=== PATIENT | female | born 1955 | race Caucasian/White ===

== ENCOUNTER 2017-11-19 11:16 | Outpatient (CLI) | payer BC ==
--- NOTE | 2017-11-22 18:19 | Mammography Report ---
DATE OF SERVICE: 11/19/2017 DIGITAL SCREENING MAMMOGRAM: 11/19/2017 CLINICAL INDICATION: A 62-year-old with history of benign biopsy, history of light childbearing for screening. The patient reports having had previous mammograms in [place], [place], but the facility indicated by the patient states that they have no record of the patient. If the records and your office indicate where the patient's previous mammograms were performed, we would be happy to try to obtain them for direct comparison. Otherwise, this will serve as a new baseline breasts. TECHNIQUE: Routine CC and MLO projections as well as bilateral laterally exaggerated craniocaudal views were obtained of the breasts. The breasts demonstrate heterogeneously dense fibroglandular parenchyma bilaterally. There is a biopsy marker in the right upper outer central breast. Coarse and punctate, typically benign calcifications are present. No suspicious masses, clustered microcalcifications, or regions of architectural distortion are identified. IMPRESSION: Benign findings. RECOMMENDATIONS: Routine annual screening unless otherwise clinically indicated. BIRADS category 2 benign findings. STANDARD QUALIFYING STATEMENTS 1. This examination was reviewed with the aid of Computed-Aided Detection (CAD). 2. A negative or benign imaging report should not delay biopsy if clinically suspicious findings are present. Consider surgical consultation if warranted. More than 5% of cancers are not identified by imaging. 3. Dense breasts may obscure an underlying neoplasm. TD: 11/22/2017 19:18
== END 2017-11-19 11:17 | disposition home or self-care (01) ==
LOC: DI 11:16
PROVIDERS: ATTEND Internal Medicine
DX: Z12.31 Encounter for screening mammogram for malignant neoplasm of breast (principal)
CPT/HCPCS: 77067

== ENCOUNTER 2017-12-19 11:03 | Outpatient (CLI) | payer BC ==
[2017-12-19 11:40] LABS: BASOPHILS # (AUTO) 0.1 10^3/uL (0.0-0.1); BASOPHILS % (AUTO) 0.8 %; LYMPHOCYTES # (AUTO) 2.9 10^3/uL (1.5-3.5); LYMPHOCYTES % (AUTO) 42.9 %; MEAN CORPUSCULAR HEMOGLOBIN 33.3 pg (27.0-31.0); MEAN CORPUSCULAR HGB CONC 34.8 g/dL (32.0-36.0); MEAN CORPUSCULAR VOLUME 95.6 fL (81.0-99.0); MONOCYTES # (AUTO) 0.7 10^3/uL (0.0-1.0); MONOCYTES % (AUTO) 10.8 %; NEUTROPHILS # (AUTO) 3.1 10^3/uL (1.5-6.6); NEUTROPHILS % (AUTO) 45.5 %; PLT - PLATELET COUNT 303 10^3/uL (130-450); RED BLOOD COUNT 4.51 10^6/uL (4.20-5.40); WHITE BLOOD COUNT 6.8 x10^3/uL (4.8-10.8)
[2017-12-19 11:53] LABS: ALBUMIN 5.1 g/dL (3.2-5.5); BILIRUBIN,DIRECT 0.2 mg/dL (0.1-0.5); TOTAL PROTEIN 8.1 g/dL (6.7-8.2)
[2017-12-19 12:47] LABS: THYROID STIMULATING HORMONE 0.75 uIU/mL (0.34-5.60)
[2017-12-19 12:51] LABS: FREE T4 (FREE THYROXINE) 0.76 ng/dL (0.58-1.64)
[2017-12-19 12:55] LABS: TOTAL T3 0.79 ng/mL (0.87-1.78)
== END 2017-12-19 11:04 | disposition home or self-care (01) ==
LOC: LAB 11:03
PROVIDERS: ATTEND Internal Medicine Endocrinology, Diabetes & Metabolism
DX: E05.90 Thyrotoxicosis, unspecified without thyrotoxic crisis or storm (principal); E04.2 Nontoxic multinodular goiter
CPT/HCPCS: 36415; 80076; 84439; 84443; 84480; 85025

== ENCOUNTER 2018-02-08 09:29 | Outpatient (CLI) | payer BC, OTHER ==
--- NOTE | 2018-02-08 12:43 | Ultrasound Report ---
THYROID ULTRASOUND: 02/08/2018 HISTORY: Followup multiple thyroid nodules, hypothyroidism. COMPARISON: Unfortunately, none. TECHNIQUE: Real-time scanning by the five piece expansion maker hand with saved static images reviewed. FINDINGS: Both lobes of the thyroid are diffusely coarse and heterogeneous in echotexture with multiple small cystic spaces. No hypervascularity. A definite discrete nodule is not identified on this study. Right lobe: 5.1 x 2.3 x 2.5 cm. Volume 15.3 mL. Left lobe: 4.8 x 1.9 x 2.3 cm , volume 10.9 mL. Isthmus: 0.4 cm. No regional adenopathy. IMPRESSION: DIFFUSE COARSE HETEROGENEOUS BILATERAL THYROID ECHOTEXTURE WITHOUT DISCRETE NODULE. WHEN PRIOR IMAGES BECOME AVAILABLE, AN ADDENDED REPORT CAN BE ISSUED. TD: 02/08/2018 12:42 MTDJodie
== END 2018-02-08 09:30 | disposition home or self-care (01) ==
LOC: DI 09:29
PROVIDERS: ATTEND Internal Medicine Endocrinology, Diabetes & Metabolism
DX: E04.2 Nontoxic multinodular goiter (principal); E05.90 Thyrotoxicosis, unspecified without thyrotoxic crisis or storm
CPT/HCPCS: 76536

== ENCOUNTER 2018-03-12 10:23 | Outpatient (CLI) | payer BC, OTHER ==
[2018-03-12 17:21] LABS: BASOPHILS # (AUTO) 0.1 10^3/uL (0.0-0.1); EOSINOPHILS % (AUTO) 0.1 %; HGB - HEMOGLOBIN 14.7 g/dL (12.0-16.0); LYMPHOCYTES # (AUTO) 2.8 10^3/uL (1.5-3.5); LYMPHOCYTES % (AUTO) 40.5 %; MEAN CORPUSCULAR HEMOGLOBIN 31.8 pg (27.0-31.0); MEAN CORPUSCULAR HGB CONC 33.1 g/dL (32.0-36.0); MEAN CORPUSCULAR VOLUME 96.1 fL (81.0-99.0); MEAN PLATELET VOLUME 8.2 fL (7.9-10.8); MONOCYTES # (AUTO) 0.6 10^3/uL (0.0-1.0); NEUTROPHILS # (AUTO) 3.5 10^3/uL (1.5-6.6); NEUTROPHILS % (AUTO) 50.4 %; PLT - PLATELET COUNT 335 10^3/uL (130-450); RED BLOOD COUNT 4.61 10^6/uL (4.20-5.40); RED CELL DISTRIBUTION WIDTH 12.8 % (12.0-15.0); WHITE BLOOD COUNT 6.9 x10^3/uL (4.8-10.8)
[2018-03-12 17:36] LABS: ALBUMIN 4.9 g/dL (3.2-5.5); BILIRUBIN,DIRECT 0.1 mg/dL (0.1-0.5); BILIRUBIN,TOTAL 0.8 mg/dL (0.2-1.0)
[2018-03-12 17:46] LABS: THYROID STIMULATING HORMONE 0.31 uIU/mL (0.34-5.60)
[2018-03-12 17:48] LABS: FREE T4 (FREE THYROXINE) 0.86 ng/dL (0.58-1.64)
[2018-03-12 17:52] LABS: TOTAL T3 0.94 ng/mL (0.87-1.78)
== END 2018-03-12 10:24 | disposition home or self-care (01) ==
LOC: LAB.F 10:23
PROVIDERS: ATTEND Internal Medicine Endocrinology, Diabetes & Metabolism
DX: E05.90 Thyrotoxicosis, unspecified without thyrotoxic crisis or storm (principal)
CPT/HCPCS: 36415; 80076; 84439; 84443; 84480; 84481; 85025

== ENCOUNTER 2018-06-21 10:47 | Outpatient (CLI) | payer OTHER ==
[2018-06-21 17:38] LABS: BASOPHILS % (AUTO) 0.8 %; EOSINOPHILS % (AUTO) 0.1 %; HGB - HEMOGLOBIN 14.7 g/dL (12.0-16.0); LYMPHOCYTES # (AUTO) 2.2 10^3/uL (1.5-3.5); LYMPHOCYTES % (AUTO) 47.9 %; MEAN CORPUSCULAR HEMOGLOBIN 33.2 pg (27.0-31.0); MEAN CORPUSCULAR HGB CONC 34.5 g/dL (32.0-36.0); MEAN CORPUSCULAR VOLUME 96.1 fL (81.0-99.0); MEAN PLATELET VOLUME 7.8 fL (7.9-10.8); MONOCYTES # (AUTO) 0.6 10^3/uL (0.0-1.0); MONOCYTES % (AUTO) 12.8 %; NEUTROPHILS # (AUTO) 1.8 10^3/uL (1.5-6.6); NEUTROPHILS % (AUTO) 38.4 %; PLT - PLATELET COUNT 330 10^3/uL (130-450); RED BLOOD COUNT 4.43 10^6/uL (4.20-5.40); WHITE BLOOD COUNT 4.6 x10^3/uL (4.8-10.8)
[2018-06-21 17:47] LABS: BILIRUBIN,DIRECT 0.2 mg/dL (0.1-0.5); BILIRUBIN,TOTAL 0.7 mg/dL (0.2-1.0); TOTAL PROTEIN 7.9 g/dL (6.7-8.2)
[2018-06-21 17:50] LABS: THYROID STIMULATING HORMONE 0.81 uIU/mL (0.34-5.60)
[2018-06-21 17:52] LABS: FREE T4 (FREE THYROXINE) 0.81 ng/dL (0.58-1.64)
[2018-06-21 17:57] LABS: TOTAL T3 1.01 ng/mL (0.87-1.78)
== END 2018-06-21 10:48 | disposition home or self-care (01) ==
LOC: LAB.F 10:47
PROVIDERS: ATTEND Internal Medicine Endocrinology, Diabetes & Metabolism
DX: E05.90 Thyrotoxicosis, unspecified without thyrotoxic crisis or storm (principal); E04.2 Nontoxic multinodular goiter
CPT/HCPCS: 36415; 80076; 84439; 84443; 84480; 85025

== ENCOUNTER 2018-09-24 10:41 | Outpatient (CLI) | payer OTHER ==
[2018-09-24 18:22] LABS: THYROID STIMULATING HORMONE 1.07 uIU/mL (0.34-5.60)
[2018-09-24 18:24] LABS: FREE T4 (FREE THYROXINE) 0.74 ng/dL (0.58-1.64)
[2018-09-24 18:26] LABS: BILIRUBIN,DIRECT 0.2 mg/dL (0.1-0.5); BILIRUBIN,TOTAL 1.1 mg/dL (0.2-1.0); TOTAL PROTEIN 7.7 g/dL (6.7-8.2); TOTAL T3 0.81 ng/mL (0.87-1.78)
== END 2018-09-24 10:42 | disposition home or self-care (01) ==
LOC: LAB.F 10:41
PROVIDERS: ATTEND Internal Medicine Endocrinology, Diabetes & Metabolism
DX: E05.90 Thyrotoxicosis, unspecified without thyrotoxic crisis or storm (principal)
CPT/HCPCS: 36415; 80076; 84439; 84443; 84480

== ENCOUNTER 2018-10-01 10:33 | Outpatient (CLI) | payer OTHER ==
[2018-10-01 18:12] LABS: BASOPHILS # (AUTO) 0.1 10^3/uL (0.0-0.1); BASOPHILS % (AUTO) 0.9 %; EOSINOPHILS % (AUTO) 0.2 %; HGB - HEMOGLOBIN 15.1 g/dL (12.0-16.0); LYMPHOCYTES # (AUTO) 2.2 10^3/uL (1.5-3.5); LYMPHOCYTES % (AUTO) 39.6 %; MEAN CORPUSCULAR HEMOGLOBIN 33.3 pg (27.0-31.0); MEAN CORPUSCULAR VOLUME 97.9 fL (81.0-99.0); MONOCYTES # (AUTO) 0.6 10^3/uL (0.0-1.0); MONOCYTES % (AUTO) 11.2 %; NEUTROPHILS # (AUTO) 2.6 10^3/uL (1.5-6.6); NEUTROPHILS % (AUTO) 48.1 %; PLT - PLATELET COUNT 341 10^3/uL (130-450); RED BLOOD COUNT 4.54 10^6/uL (4.20-5.40); WHITE BLOOD COUNT 5.5 x10^3/uL (4.8-10.8)
== END 2018-10-01 10:34 | disposition home or self-care (01) ==
LOC: LAB.F 10:33
PROVIDERS: ATTEND Internal Medicine Endocrinology, Diabetes & Metabolism
DX: E05.90 Thyrotoxicosis, unspecified without thyrotoxic crisis or storm (principal)
CPT/HCPCS: 36415; 85025

== ENCOUNTER 2018-12-31 10:30 | Outpatient (CLI) | payer BC ==
[2018-12-31 17:55] LABS: BASOPHILS % (AUTO) 0.9 %; EOSINOPHILS % (AUTO) 0.2 %; HGB - HEMOGLOBIN 14.9 g/dL (12.0-16.0); LYMPHOCYTES # (AUTO) 2.1 10^3/uL (1.5-3.5); LYMPHOCYTES % (AUTO) 43.4 %; MEAN CORPUSCULAR HEMOGLOBIN 32.7 pg (27.0-31.0); MEAN CORPUSCULAR HGB CONC 33.5 g/dL (32.0-36.0); MEAN CORPUSCULAR VOLUME 97.5 fL (81.0-99.0); MONOCYTES # (AUTO) 0.5 10^3/uL (0.0-1.0); MONOCYTES % (AUTO) 11.2 %; NEUTROPHILS # (AUTO) 2.1 10^3/uL (1.5-6.6); NEUTROPHILS % (AUTO) 44.3 %; PLT - PLATELET COUNT 331 10^3/uL (130-450); RED BLOOD COUNT 4.55 10^6/uL (4.20-5.40); RED CELL DISTRIBUTION WIDTH 12.7 % (12.0-15.0); WHITE BLOOD COUNT 4.8 x10^3/uL (4.8-10.8)
[2018-12-31 18:05] LABS: BILIRUBIN,DIRECT 0.1 mg/dL (0.1-0.5); BILIRUBIN,TOTAL 1.2 mg/dL (0.2-1.0)
[2018-12-31 18:18] LABS: FREE T4 (FREE THYROXINE) 0.71 ng/dL (0.58-1.64)
[2018-12-31 18:22] LABS: TOTAL T3 0.76 ng/mL (0.87-1.78)
== END 2018-12-31 10:31 | disposition home or self-care (01) ==
LOC: LAB.F 10:30
PROVIDERS: ATTEND Internal Medicine Endocrinology, Diabetes & Metabolism
DX: E05.90 Thyrotoxicosis, unspecified without thyrotoxic crisis or storm (principal)
CPT/HCPCS: 36415; 80076; 84439; 84480; 85025

== ENCOUNTER 2019-01-07 08:00 | Outpatient (CLI) | payer BC | END 2019-01-07 23:59 | disposition home or self-care (01) | LOC: LAB.F 08:00 | PROVIDERS: ATTEND Internal Medicine Endocrinology, Diabetes & Metabolism | DX: E05.90 Thyrotoxicosis, unspecified without thyrotoxic crisis or storm (principal) | CPT/HCPCS: 36415; 84443 ==

== ENCOUNTER 2019-03-04 10:55 | Outpatient (CLI) | payer BC ==
[2019-03-04 17:43] LABS: THYROID STIMULATING HORMONE 1.59 uIU/mL (0.34-5.60)
[2019-03-04 17:45] LABS: FREE T4 (FREE THYROXINE) 0.8 ng/dL (0.58-1.64)
[2019-03-04 17:50] LABS: TOTAL T3 0.85 ng/mL (0.87-1.78)
== END 2019-03-04 10:56 | disposition home or self-care (01) ==
LOC: LAB.F 10:55
PROVIDERS: ATTEND Internal Medicine Endocrinology, Diabetes & Metabolism
DX: E05.90 Thyrotoxicosis, unspecified without thyrotoxic crisis or storm (principal)
CPT/HCPCS: 36415; 81599; 83519; 84439; 84443; 84480

== ENCOUNTER 2019-06-05 | Outpatient (CLI) | payer MEDICARE, BC | END 2019-06-05 09:52 | disposition home or self-care (01) | DX: E05.00 Thyrotoxicosis with diffuse goiter without thyrotoxic crisis or storm (principal) | CPT/HCPCS: 36415; 80076; 84439; 84443; 84481; 85025 ==

== ENCOUNTER 2019-08-06 10:35 | Outpatient (CLI) | payer MEDICARE, BC ==
--- NOTE | 2019-08-07 08:11 | DEXA Report ---
Reason: OSTEOPENIA Procedure Date: 08/06/2019 Accession Number: [id number] / [id number] Procedure: DEX - Dexa Spine and/or Hip CPT Code: FULL RESULT: EXAM: Dexa Spine and/or Hip DATE: 08/06/2019 11:43 AM CLINICAL HISTORY: OSTEOPENIA TECHNIQUE: Dual energy x-ray absorptiometry (DXA) was performed on a [email or web address] System. Regions measured are the AP Spine, femoral neck, and if needed forearm. COMPARISON: None. In accordance with the International Society for Clinical Densitometry (ISCD) guidelines, data from previous exams may be reanalyzed using current recommendations and techniques. This is done to allow a more accurate basis for comparison with the current study. FINDINGS: The data for the lumbar spine is as follows: BMD (g/cm/cm) T-SCORE Z-SCORE REGION L1 0.907 -1.9 -0.3 L2 0.897 -2.5 -1.0 L3 0.840 -3.0 -1.4 L4 0.909 -2.4 -0.9 TOTAL 0.890 -2.4 -0.9 NOTE: All evaluable vertebrae are used for classification The data for the hip is as follows: BMD (g/cm/cm) T-SCORE Z-SCORE REGION Neck 0.774 -1.9 -0.4 TOTAL 0.808 -1.6 -0.4 NOTE: The femoral neck or total proximal femur, whichever is lowest, is used for classification. IMPRESSION: THE WHO CLASSIFICATION BASED ON THE INTERNATIONAL REFERENCE STANDARD IS OSTEOPENIA. THE FRACTURE RISK IS INCREASED. RECOMMENDATION: Patients with diagnosis of osteoporosis or osteopenia should have regular bone mineral density assessment. For those eligible for Medicare, routine testing is allowed once every 2 years. Testing frequency can be increased for patients who have rapidly progressing disease or for those who are receiving medical therapy to restore bone mass. COMMENT: World Health Organization (WHO) definitions for osteoporosis and osteopenia: NORMAL BMD: T-score at -1.0 or higher, fracture risk is low OSTEOPENIA BMD: T-score between -1.0 and -2.5, fracture risk is increased. OSTEOPOROSIS BMD: T-score at -2.5 or lower, fracture risk is high. National Osteoporosis Foundation recommends: 1. Obtain adequate dietary calcium (at least 1200 mg per day) and vitamin D (400-800 international units per day). 2. Participate, as appropriate, in regular weightbearing and muscle-strengthening exercise. 3. Avoid tobacco use and reduce alcohol and caffeine intake. 4. For more detailed information see the website at www.NOF.org.
== END 2019-08-06 10:36 | disposition home or self-care (01) ==
LOC: DI 10:35
PROVIDERS: ATTEND Internal Medicine
DX: M85.89 Other specified disorders of bone density and structure, multiple sites (principal)
CPT/HCPCS: 77080

== ENCOUNTER 2019-09-03 11:19 | Outpatient (CLI) | payer MEDICARE, BC ==
[2019-09-03 18:36] LABS: THYROID STIMULATING HORMONE 1.57 uIU/mL (0.34-5.60)
[2019-09-03 18:41] LABS: FREE T4 (FREE THYROXINE) 0.75 ng/dL (0.58-1.64)
[2019-09-03 18:43] LABS: TOTAL T3 0.91 ng/mL (0.87-1.78)
== END 2019-09-03 11:20 | disposition home or self-care (01) ==
LOC: LAB.S 11:19
PROVIDERS: ATTEND Internal Medicine Endocrinology, Diabetes & Metabolism
DX: E05.90 Thyrotoxicosis, unspecified without thyrotoxic crisis or storm (principal); E04.2 Nontoxic multinodular goiter; E05.00 Thyrotoxicosis with diffuse goiter without thyrotoxic crisis or storm
CPT/HCPCS: 36415; 81599; 83519; 84439; 84443; 84480

== ENCOUNTER 2019-12-02 10:28 | Outpatient (CLI) | payer MEDICARE, BC ==
[2019-12-02 17:53] LABS: THYROID STIMULATING HORMONE 1.7 uIU/mL (0.34-5.60)
[2019-12-02 17:54] LABS: FREE T4 (FREE THYROXINE) 0.85 ng/dL (0.58-1.64)
== END 2019-12-02 10:29 | disposition home or self-care (01) ==
LOC: LAB.S 10:28
PROVIDERS: ATTEND Internal Medicine Endocrinology, Diabetes & Metabolism
DX: E04.2 Nontoxic multinodular goiter (principal); E05.90 Thyrotoxicosis, unspecified without thyrotoxic crisis or storm; E05.00 Thyrotoxicosis with diffuse goiter without thyrotoxic crisis or storm
CPT/HCPCS: 36415; 81599; 83520; 84439; 84443; 84481

== ENCOUNTER 2020-09-02 09:43 | Outpatient (CLI) | payer MEDICARE, BC ==
[2020-09-02 15:42] LABS: BASOPHILS % (AUTO) 0.8 %; EOSINOPHILS % (AUTO) 0.6 %; HGB - HEMOGLOBIN 14.6 g/dL (12.0-16.0); LYMPHOCYTES # (AUTO) 2.1 10^3/uL (1.5-3.5); LYMPHOCYTES % (AUTO) 41.2 %; MEAN CORPUSCULAR HEMOGLOBIN 32.7 pg (27.0-31.0); MEAN PLATELET VOLUME 9.6 fL (7.9-10.8); MONOCYTES # (AUTO) 0.6 10^3/uL (0.0-1.0); MONOCYTES % (AUTO) 11.5 %; NEUTROPHILS # (AUTO) 2.4 10^3/uL (1.5-6.6); NEUTROPHILS % (AUTO) 45.7 %; PLT - PLATELET COUNT 367 10^3/uL (130-450); RED BLOOD COUNT 4.47 10^6/uL (4.20-5.40); RED CELL DISTRIBUTION WIDTH 12.3 % (12.0-15.0); WHITE BLOOD COUNT 5.1 x10^3/uL (4.8-10.8)
[2020-09-02 16:01] LABS: ALBUMIN 5.1 g/dL (3.2-5.5); ALBUMIN/GLOBULIN RATIO 1.6 (1.0-2.2); ALKALINE PHOSPHATASE 96 IU/L (42-121); ALT ALANINE AMINOTRANSFERASE 17 IU/L (10-60); AST ASPARTATE AMINOTRANSFERASE 20 IU/L (10-42); BILIRUBIN,TOTAL 1.1 mg/dL (0.2-1.0); BUN - BLOOD UREA NITROGEN 7 mg/dL (6-20); CALCIUM 10.1 mg/dL (8.5-10.3); CARBON DIOXIDE - CO2 26 mmol/L (21-32); CHLORIDE 91 mmol/L (101-111); CHOL/HDL RATIO 1.9 (<4.4); CHOLESTEROL 237 mg/dL; CREATININE 0.4 mg/dL (0.4-1.0); GLUCOSE 97 mg/dL (70-100); HDL CHOLESTEROL 125 mg/dL; LDL CHOLESTEROL,CALCULATED 104 mg/dL; LDL/HDL RATIO 0.8 (<4.4); SODIUM 130 mmol/L (135-145); TOTAL PROTEIN 8.2 g/dL (6.7-8.2); VLDL CHOLESTEROL 8 mg/dL
[2020-09-02 16:16] LABS: THYROID STIMULATING HORMONE 1.82 uIU/mL (0.34-5.60)
[2020-09-02 16:20] LABS: FREE T3 3.18 pg/mL (2.5-3.9); FREE T4 (FREE THYROXINE) 0.98 ng/dL (0.58-1.64)
== END 2020-09-02 09:44 | disposition home or self-care (01) ==
LOC: LAB.S 09:43
PROVIDERS: ATTEND Internal Medicine Endocrinology, Diabetes & Metabolism
DX: I10 Essential (primary) hypertension (principal); Z13.6 Encounter for screening for cardiovascular disorders; Z79.899 Other long term (current) drug therapy; I48.91 Unspecified atrial fibrillation; E05.90 Thyrotoxicosis, unspecified without thyrotoxic crisis or storm; C44.92 Squamous cell carcinoma of skin, unspecified; E05.00 Thyrotoxicosis with diffuse goiter without thyrotoxic crisis or storm
CPT/HCPCS: 36415; 80053; 80061; 81599; 82306; 83520; 83721; 84439; 84443; 84481; 85025

== ENCOUNTER 2020-11-30 10:38 | Outpatient (CLI) | payer MEDICARE, BC ==
--- NOTE | 2020-12-01 10:28 | Mammography Report ---
BILATERAL DIGITAL SCREENING MAMMOGRAM 3D/2D WITH EXAGGERATED CC: 11/30/2020 CLINICAL: Routine screening. Comparison is made to exam dated: 11/19/2017 mammogram - [facility]. The tissue of both breasts is heterogeneously dense. This may lower the sensitivity of mammography. There is a biopsy site marker on the right breast. No significant masses, calcifications, or other findings are seen in either breast. IMPRESSION: NEGATIVE There is no mammographic evidence of malignancy. A 1 year screening mammogram is recommended. This exam was interpreted at Station ID: [id number]. NOTE: For mammograms, a report in lay terms will be sent to the patient. Approximately 15% of breast malignancies will not be visualized mammographically. In the management of a palpable breast mass, a negative mammogram must not discourage biopsy of a clinically suspicious lesion. Electronically Signed By: Deniz Sanchez M.D. aty/penrad:11/30/2020 14:31:11 ACR BI-RADS Category 1: Negative 3341F PARENCHYMAL PATTERN: (D) - The breast(s) demonstrate(s) heterogeneously dense fibroglandular carrillo milner. BI-RADS CATEGORY: (1) - 1 RECOMMENDATION: (ANNUAL) - Recommend routine annual screening mammography. [id number] 1 year screening LATERALITY: (B)
== END 2020-11-30 10:39 | disposition home or self-care (01) ==
LOC: DI.S 10:38
PROVIDERS: ATTEND Internal Medicine
DX: Z12.31 Encounter for screening mammogram for malignant neoplasm of breast (principal)

== ENCOUNTER 2021-01-04 09:36 | Outpatient (CLI) | payer MEDICARE, BC ==
[2021-01-04 15:33] LABS: THYROID STIMULATING HORMONE 2.22 uIU/mL (0.34-5.60)
[2021-01-04 15:35] LABS: FREE T4 (FREE THYROXINE) 0.93 ng/dL (0.58-1.64)
[2021-01-04 15:40] LABS: TOTAL T3 0.87 ng/mL (0.87-1.78)
== END 2021-01-04 09:37 | disposition home or self-care (01) ==
LOC: LAB.S 09:36
PROVIDERS: ATTEND Internal Medicine Endocrinology, Diabetes & Metabolism
DX: E05.00 Thyrotoxicosis with diffuse goiter without thyrotoxic crisis or storm (principal)
CPT/HCPCS: 36415; 81599; 83520; 84439; 84443; 84480

== ENCOUNTER 2021-05-11 10:05 | Outpatient (CLI) | payer MEDICARE, BC ==
[2021-05-11 15:42] LABS: THYROID STIMULATING HORMONE 2.81 uIU/mL (0.34-5.60)
[2021-05-11 15:44] LABS: FREE T4 (FREE THYROXINE) 0.91 ng/dL (0.58-1.64)
== END 2021-05-11 10:06 | disposition home or self-care (01) ==
LOC: LAB.S 10:05
PROVIDERS: ATTEND Internal Medicine Endocrinology, Diabetes & Metabolism
DX: E05.00 Thyrotoxicosis with diffuse goiter without thyrotoxic crisis or storm (principal)
CPT/HCPCS: 36415; 81599; 83520; 84439; 84443; 84480

== ENCOUNTER 2021-08-08 12:26 | Outpatient (CLI) | payer MEDICARE, BC ==
--- NOTE | 2021-08-08 18:28 | Ultrasound Report ---
PROCEDURE: Head or Neck Soft Tissue INDICATIONS: GRAVES EYE DISEASE TECHNIQUE: Real-time scanning was performed of the thyroid gland, with image documentation. COMPARISON: 02/08/2018 FINDINGS: Right: Thyroid lobe measures 4.3 x 2 x 2.3 cm. Left: Thyroid lobe measures 4.5 x 2.1 x 2.2 cm. Isthmus: 2 mm thick. Nodule number: 1 Location: Right inferior thyroid Size: 0.7 x 0.5 x 0.7 cm, prior 0.6 x 0.6 x 0.8 cm. Composition: Solid Echogenicity: Hyperechoic Shape: wider than tall. Margins: Smooth Echogenic foci: None. Total points: 3 ACR TI-RADS category: 3 Nodule number: 2 Location: Right mid thyroid anterolaterally Size: 1.1 x 0.6 x 1.1 cm, prior 1.1 x 0.8 x 1 cm. Composition: Predominantly solid Echogenicity: Hypoechoic Shape: wider than tall. Margins: Smooth Echogenic foci: None Total points: 4 ACR TI-RADS category: 4 Nodule number: 3 Location: Right isthmus Size: 0.9 x 0.5 x 0.8 cm, prior 0.8 x 0.7 x 1.4 cm. Composition: Spongiform Echogenicity: Hyperechoic Shape: wider than tall. Margins: Halo appearance Echogenic foci: None Total points: 2 ACR TI-RADS category: 2 Nodule number: 4 Location: Left mid thyroid anteriorly Size: 1.3 x 0.8 x 1.4 cm, prior 1.1 x 0.9 x 1.4 cm cm. Composition: Spongiform Echogenicity: Hypoechoic Shape: wider than tall. Margins: Smooth Echogenic foci: None Total points: 3 ACR TI-RADS category: 3 Nodule number: 5 Location: Left mid thyroid posteriorly Size: 1.1 x 0.8 x 1 cm, prior 1 x 0.9 x 0.8 cm. Composition: Solid Echogenicity: Hypoechoic Shape: wider than tall. Margins: Smooth Echogenic foci: None Total points: 4 ACR TI-RADS category: 4 Nodule number: 6 Location: Left inferior thyroid Size: 1.6 x 1.5 x 1.2 cm, not seen previously. Composition: Predominately solid Echogenicity: Hypoechoic Shape: wider than tall. Margins: Smooth Echogenic foci: None Total points: 4 ACR TI-RADS category: 4 An additional nodule can be seen along the inferior aspect of the left thyroid, which may represent a parathyroid nodule that measures 0.6 x 0.5 x 0.5 cm. IMPRESSION: Bilateral thyroid nodules are seen. No significant progression can be seen compared to 2018. By published criteria, follow-up is recommended in one year. A 6 mm nodule can be seen along the inferior aspect of the left thyroid, which may represent a parath yroid gland or an additional thyroid nodule. ACR TI-RADS definitions and recommendations: TI-RADS 1 (benign): 0 points. FNA not needed. TI-RADS 2 (not suspicious): 2 points. FNA not needed. TI-RADS 3 (mildly suspicious): 3 points. "FNA if 2.5 cm or larger, follow up if 1.5 cm or larger (at 1, 3, and 5 years). TI-RADS 4 (moderately suspicious): 4-6 points. "FNA if 1.5 cm or larger, follow up if 1 cm or larger (at 1, 2, 3, and 5 years). TI-RADS 5 (highly suspicious): 7 points or more. "FNA if 1 cm or larger, follow up if 0.5 cm or larger (every year for 5 years). Reviewed by: Lakhwinder Shepard MD on 08/08/2021 5:27 PM AMANDA Approved by: Lakhwinder Shepard MD on 08/08/2021 5:27 PM AMANDA Station ID: [id number]
== END 2021-08-08 12:27 | disposition home or self-care (01) ==
LOC: DI 12:26
PROVIDERS: ATTEND Internal Medicine Endocrinology, Diabetes & Metabolism
DX: E04.2 Nontoxic multinodular goiter (principal); E05.00 Thyrotoxicosis with diffuse goiter without thyrotoxic crisis or storm

== ENCOUNTER 2021-08-17 12:12 | Outpatient (CLI) | payer MEDICARE, BC ==
[2021-08-17 15:56] LABS: THYROID STIMULATING HORMONE 2.59 uIU/mL (0.34-5.60)
[2021-08-17 15:57] LABS: FREE T4 (FREE THYROXINE) 0.81 ng/dL (0.58-1.64)
== END 2021-08-17 12:13 | disposition home or self-care (01) ==
LOC: LAB.S 12:12
PROVIDERS: ATTEND Internal Medicine Endocrinology, Diabetes & Metabolism
DX: E05.00 Thyrotoxicosis with diffuse goiter without thyrotoxic crisis or storm (principal)
CPT/HCPCS: 36415; 81599; 83520; 84439; 84443; 84480

== ENCOUNTER 2021-09-27 11:46 | Outpatient (CLI) | payer MEDICARE, BC ==
[2021-09-27 16:16] LABS: THYROID STIMULATING HORMONE 2.91 uIU/mL (0.34-5.60)
[2021-09-27 16:18] LABS: FREE T4 (FREE THYROXINE) 0.85 ng/dL (0.58-1.64)
== END 2021-09-27 11:47 | disposition home or self-care (01) ==
LOC: LAB.S 11:46
PROVIDERS: ATTEND Internal Medicine Endocrinology, Diabetes & Metabolism
DX: E05.00 Thyrotoxicosis with diffuse goiter without thyrotoxic crisis or storm (principal)
CPT/HCPCS: 36415; 84439; 84443; 84480

== ENCOUNTER 2021-12-30 10:45 | Outpatient (CLI) | payer MEDICARE, BC ==
[2021-12-30 16:09] LABS: THYROID STIMULATING HORMONE 2.65 uIU/mL (0.34-5.60)
[2021-12-30 16:11] LABS: FREE T4 (FREE THYROXINE) 0.85 ng/dL (0.58-1.64)
== END 2021-12-30 10:46 | disposition home or self-care (01) ==
LOC: LAB.S 10:45
PROVIDERS: ATTEND Internal Medicine Endocrinology, Diabetes & Metabolism
DX: E05.00 Thyrotoxicosis with diffuse goiter without thyrotoxic crisis or storm (principal)
CPT/HCPCS: 36415; 84439; 84443; 84480

== ENCOUNTER 2022-08-02 11:13 | Outpatient (CLI) | payer MEDICARE, BC ==
--- NOTE | 2022-08-02 21:30 | Ultrasound Report ---
PROCEDURE: Head or Neck Soft Tissue INDICATIONS: MULTINODULAR GOITER TECHNIQUE: Real time scanning was performed of the neck region of interest, with image documentation . COMPARISON: 02/08/2017, 02/18/2018, 08/08/2021 FINDINGS: The right thyroid measures 2 x 2 0.2 x 4.4 cm. The left thyroid measures 1.7 x 1.7 x 4 cm. The isthmus measures 0.2 cm. Normal-appearing bilateral lymph nodes are seen. Inferior to the left thyroid, there is a stable circular nodule measuring 6 x 5 x 7 mm. Nodule 1: Right inferior measuring 3 x 3 x 3 mm, decreased in size. This does not require dedicated f ollow-up. Nodule 2: Right mid nodule measuring 8 x 8 x 8 mm, previously 11 x 6 x 11 mm. This does not require d edicated follow-up. Nodule 3: Right superior nodule measuring 4 x 3 x 4 mm. This is decreased in size and does not requir e dedicated follow-up. Nodule 4: Left superior lateral region measuring 6 x 5 x 7 mm. This is decreased in size and does not require dedicated follow-up. (TR4). Nodule 5: Left superior mid region measuring 11 x 7 x 11 mm, decreased in size compared to prior. TR- 4. Follow-up is recommended. Nodule 6: Left inferior measuring 10 x 8 x 8 mm, decreased in size. TR 4. Follow-up is recommended. IMPRESSION: Follow-up is recommended for nodules 5 and 6 described above, which are decreased in size. Stable nod ule inferior to the left thyroid measuring 6 x 5 x 7 mm, differential includes parathyroid nodule/tis clayton. Reviewed by: Tevin Orta MD on 08/02/2022 9:29 PM PDT Approved by: Tevin Orta MD on 08/02/2022 9:29 PM PDT Station ID: [id number]
== END 2022-08-02 11:14 | disposition home or self-care (01) ==
LOC: DI 11:13
PROVIDERS: ATTEND Internal Medicine Endocrinology, Diabetes & Metabolism
DX: E04.2 Nontoxic multinodular goiter (principal); E05.00 Thyrotoxicosis with diffuse goiter without thyrotoxic crisis or storm; M81.0 Age-related osteoporosis without current pathological fracture

== ENCOUNTER 2023-02-28 13:57 | Outpatient (CLI) | payer MEDICARE, BC | END 2023-02-28 13:58 | disposition home or self-care (01) | LOC: DI.S 13:57 | PROVIDERS: ATTEND Internal Medicine | DX: Z53.9 Procedure and treatment not carried out, unspecified reason (principal) ==

== ENCOUNTER 2023-04-10 10:05 | Outpatient (CLI) | payer MEDICARE, BC ==
--- NOTE | 2023-04-10 12:54 | Mammography Report ---
UNILATERAL LEFT DIGITAL DIAGNOSTIC MAMMOGRAM 3D/2D WITH MAGNIFICATION: 04/10/2023 CLINICAL: Patient returns for magnification views of microcalcifications in the left breast. Comparison is made to exams dated: 02/28/2023 mammogram, 11/30/2020 mammogram, and 11/19/2017 mammogram - [facility]. The left breast is heterogeneously dense, which may obscure small masses (category c / 51-75% glandul ar tissue). There are grouped coarse heterogeneous calcifications in the left breast at 2 o'clock posterior depth . These are seen in additional views. These are more prominent and increased in number. No other significant masses or calcifications are seen in the breast. IMPRESSION: SUSPICIOUS OF MALIGNANCY The grouped coarse heterogeneous calcifications in the left breast are suspicious of malignancy. A s tereotactic biopsy is recommended. Based on the Tyrer Cuzick model (a risk assessment model) the patients lifetime risk is 9.6% and her 10 year risk is 5.7%. According to the ACR, ACS, and NCCN guidelines, an annual breast MRI exam jenna g with mammogram is recommended if the patients lifetime risk is 20% or greater. This exam was interpreted at Station ID: [id number]. NOTE: For mammograms, a report in lay terms will be sent to the patient. Approximately 15% of breast malignancies will not be visualized mammographically. In the management of a palpable breast mass, a negative mammogram must not discourage biopsy of a clinically suspicious lesion. Electronically Signed By: Tevin Orta M.D. lc/:04/10/2023 10:58:17 ACR BI-RADS Category 4: Suspicious abnormality 3344F PARENCHYMAL PATTERN: (D) - The breast(s) demonstrate(s) heterogeneously dense fibroglandular carrillo milner. BI-RADS CATEGORY: (4) - 4 Biopsy follow-up [id number] Immediate follow-up LATERALITY: (B)
== END 2023-04-10 10:06 | disposition home or self-care (01) ==
LOC: DI 10:05
PROVIDERS: ATTEND Internal Medicine
DX: R92.1 Mammographic calcification found on diagnostic imaging of breast (principal)

== ENCOUNTER 2023-04-24 08:08 | Outpatient (CLI) | payer MEDICARE, BC ==
[2023-04-24] MEDS ORDERED: LIDOCAINE-MPF 1% 5 ML VIAL ONE (08:18)
[2023-04-24] MEDS ORDERED: LIDOCAINE 1%-EPI 1:100000 20 ML MDV ONE (08:18)
[2023-04-24] MEDS ORDERED: LIDOCAINE 1%-EPI 1:100000 20 ML MDV SUBQ ONE (10:06)
[2023-04-24] MEDS ORDERED: LIDOCAINE-MPF 1% 5 ML VIAL TD ONE (10:07)
--- NOTE | 2023-04-27 11:47 | Mammography Report ---
DIGITAL TOMOGRAPHIC MAMMOGRAPHY GUIDED STEREOTACTIC GUIDED BIOPSY LEFT BREAST USING VACUUM DEVICE WIT H MARKING DEVICE INSERTED AND POST DIGITAL MAMMOGRAPHIC IMAGING- POST-PROCEDURE IMAGING FOR MARKER PL ACEMENT: 04/24/2023 CLINICAL: Left stereotactic biopsy for calcifications. Correlation is made to exams dated: 04/10/2023 mammogram, 02/28/2023 mammogram, 11/30/2020 mammogram, an d 11/19/2017 mammogram - [facility]. A stereotactic guided biopsy was performed for the area of grouped calcifications located in the left breast at 2 o'clock posterior depth. This was described on the previous mammography report. The skin was prepped in the usual manner. Local anesthetic was administered to the access site. A s kin alanna was made in the breast. The abnormality was approached from the craniocaudal aspect using a n upright digital tomographic mammography unit. A 9 gauge biopsy needle was placed adjacent to the a bnormality under computer guidance and confirmatory stereotactic mammography images were obtained to document needle placement. Once the needle was documented to be in the correct location, ten specime ns were obtained using a vacuum assisted device. A clip was inserted into the biopsy cavity. A sterile dressing was applied to the access site. Post procedure digital mammographic imaging demonstrates the location device at the targeted area. The s pecimens were sent to the laboratory for pathological analysis. IMPRESSION: STEREOTACTIC GUIDED BIOPSY HIGH RISK BENIGN Stereotactic guided biopsy of the area of grouped calcifications in the left breast at 2 o'clock post erior depth was successful with no apparent post procedure complications. Multiple specimens have peggy ro calcifications. Pathology indicates lobular carcinoma in-situ. Pathology results are concordant with imaging finding s. A surgical/oncologic consultation is recommended. This exam was interpreted at Station ID: [id number]. Romeo rojas,slc/:04/27/2023 11:07:12 BI-RADS CATEGORY: () - Unspecified - other recall n/a LATERALITY: (B)
== END 2023-04-24 08:09 | disposition home or self-care (01) ==
LOC: DI 08:08
PROVIDERS: ATTEND Internal Medicine
DX: D05.02 Lobular carcinoma in situ of left breast (principal)
CPT/HCPCS: 19081; 88305; 88342; 88344; 88360

== ENCOUNTER 2023-06-18 07:47 | Day surgery (SDC) | payer MEDICARE, BC ==
[2023-06-18] MEDS ORDERED: LIDOCAINE-MPF 1% 5 ML VIAL ONE (08:04)
[2023-06-18] MEDS ORDERED: LACTATED RINGERS 1,000 ML IV ONE ×2 (08:05→12:00)
[2023-06-18] MEDS ORDERED: ACETAMINOPHEN 500 MG TABLET PO ONE (08:11)
[2023-06-18] MEDS ORDERED: CELECOXIB 100 MG CAPSULE PO ONE (08:11)
[2023-06-18] MEDS ORDERED: ceFAZolin 2 GM VIAL ONE (08:12)
--- NOTE | 2023-06-18 08:40 | ANESTHESIA ---
Pre-Anesthesia VS, & Labs - Diagnosis Left breast LCIS - Procedure Left breast wire localized excisional biopsy Height: 5 ft 1 in Weight (kg): 67.7 kg Body Mass Index: 28.2 BMI Classification: Overweight - NPO Last Fluid Intake: carbohydrate drink 0600 - Is Patient ?: No Home Medications and Allergies Home Medications: Ambulatory Orders Lactobacillus Combination No.4 [Probiotic] 1 each PO DAILY 06/11/23 Multivitamin 1 each PO DAILY 06/11/23 Alendronate [Fosamax] 70 mg PO UD 05/28/23 Latanoprost 0.005% Ophth Drops [Xalatan Ophth Drops] 1 drops OPTH QPM 05/28/23 Losartan [Cozaar] 50 mg PO BID 05/28/23 Metoprolol Succinate [Toprol Xl] 25 mg PO DAILY 05/28/23 amLODIPine [Norvasc] 5 mg PO DAILY 05/28/23 Lactobacillus Combination No.4 [Probiotic] 1 each PO DAILY 06/11/23 Multivitamin 1 each PO DAILY 06/11/23 Allergies/Adverse Reactions: Allergies Allergy/AdvReac Type Severity Reaction Status Date / Time No Known Drug Allergies Allergy Verified 05/28/23 11:29 Anes History & Medical History - Anesthetic History Anesthesia Complications: reports: Post-Operative Nausea/Vomiting - Medical History Cardiovascular: reports: Hypertension Pulmonary: reports: None Gastrointestinal: reports: None Urinary: reports: None Neuro: reports: None Musculoskeletal: reports: Osteoarthritis Endocrine/Autoimmune: reports: HyPERthyroidism (Resolved, was treated) Skin: reports: None Smoking Status: Never smoker Psychosocial: reports: Alcohol (1-2 drinks per day) History of Cancer?: Yes (breast) - Surgical History General: reports: Colonoscopy Gynecologic: reports: Other (tubal ) Exam General: Alert, Oriented x3, Cooperative, No acute distress Dental: WNL Mouth Openin Fingerbreadth Mallampati classification: IV Thyromental Distance: 4-6 cm Mental/Cognitive Status: Alert/Oriented X3, Normal for patient Plan Anesthesia Type: General Consent for Procedure(s) Verified and Reviewed: Yes Code Status: Attempt Resuscitation ASA classification: 2-Mild systemic disease Is this case an emergency?: No
[2023-06-18] MEDS ORDERED: fentaNYL 100 MCG/2 ML VIAL IVP PRN (09:15)
[2023-06-18] MEDS ORDERED: HYDROmorphone 0.5 MG/0.5 ML SYRINGE IVP PRN ×2 (09:15→11:59)
[2023-06-18] MEDS ORDERED: ATROPINE ABBOJECT 1 MG/10 ML SYRINGE IVP PRN (09:15)
[2023-06-18] MEDS ORDERED: ONDANSETRON 4 MG/2 ML VIAL IVP PRN ×2 (09:15→11:59)
[2023-06-18] MEDS ORDERED: NALOXONE 0.4 MG/ML VIAL IVP PRN (09:15)
[2023-06-18] MEDS ORDERED: MORPHINE 2 MG/ML CARPUJECT IVP PRN (09:15)
[2023-06-18] MEDS ORDERED: fentaNYL 100 MCG/2 ML VIAL ONE (09:42)
[2023-06-18] MEDS ORDERED: LACTATED RINGERS 1,000 ML IV SCH (10:00)
[2023-06-18] MEDS ORDERED: BUPIVACAINE 0.25% PF 30 ML VIAL SUBQ ONE ×2 (11:10)
[2023-06-18] MEDS ORDERED: LIDOCAINE 1%-EPI 1:100000 20 ML MDV SUBQ ONE ×2 (11:10)
[2023-06-18] MEDS ORDERED: LIDOCAINE-MPF 1% 5 ML VIAL TD ONE (11:13)
[2023-06-18] MEDS ORDERED: PROPOFOL 200 MG/20 ML VIAL IVP ONE (11:39)
[2023-06-18] MEDS ORDERED: ACETAMINOPHEN 500 MG TABLET PO PRN (11:59)
[2023-06-18] MEDS ORDERED: oxyCODONE 5 MG TABLET PO PRN (11:59)
--- NOTE | 2023-06-18 12:05 | OPERATIVE REPORT ---
Operative Report - General Procedure Date: 06/18/23 Planned Procedure: left breast, wire localized excisional biopsy Pre-Op Diagnosis: LCIS Procedure Performed: wire localized excisional biopsy, left breast Post Op Diagnosis: LCIS - Procedure Note Primary Surgeon: Ricky Anesthesia Provider: Clarence Reyez CRNA Anesthesia Technique: General LMA, Local Pathology: 1. left breast excisional biopsy, short superior, long lateral, double deep 2. reexcision anterior lateral margin; short superior, long lateral, double anterior 3. reexcision posterior lateral nodule; short superior, long lateral, double anterior Estimated Blood Loss (mL): 15 Indications: The patient had abnormal findings on her mammogram and underwent a stereotactic biopsy which revealed LCIS. This was pleomorphic in nature. Excisional biopsy of the area was recommended. We discussed the risks, benefits, and alternatives of excisional biopsy including bleeding, infection, damage to surrounding structures, numbness in the area, and upstaging which could possibly require ad ditional surgeries or procedures. The patient voiced understanding, her questions were answered, and she wished to proceed. The area was not palpable so wire localization was needed. A consent was signed by the patient prior to surgery. Findings: 1. Palpable mass excised, oriented on back table, clip and wire verified on mammography. Posterior margin is pectoralis muscle 2. additional palpable abnormalities were excised and oriented as above Complications: None - Other Other Information/Narrative: The patient was taken to the operating room and placed in the supine position. Preop antibiotics were given. ERAS medications were given. The patient was prepped and draped in the usual sterile fashion. A preop surgical timeout was performed. Attention was turned to the patient's left breast. An incision was made overlying the area of concern, approximately 3 cm inferior and medial to the wire insertion site. This was a radial incision, following the patient's skin folds, at the 2 o'clock position, N + 5. Skin flaps were raised superiorly and inferiorly to the incision. The dissection was carried down to a palpable abnormality, which was excised with normal feeling breast tissue on all sides using Juan-Cut scissors. The specimen was oriented and sent to mammography. The clip and wire were confirmed to be within the specimen. The edges of the biopsy cavity were inspected and there were two areas along the lateral margin with palpable abnormalities. These were excised, oriented, and sent to pathology. No additional palpable abnormalities were noted. Hemostasis was confirmed. Additional local was injected into the biopsy cavity. The biopsy cavity was irrigated with warm normal saline. Clips were placed in the superior, inferior, medial, lateral, anterior, and posterior margins of the biopsy cavity. Next, the deep dermal tissues were closed with 3-0 Vicryl in an interrupted fashion. The skin was closed with 4-0 Monocryl in a running subcuticular fashion. The patient tolerated the procedure well. There were no complications.
[2023-06-18] MEDS ORDERED: BUPIVACAINE 0.25% PF 30 ML VIAL ONE (12:08)
[2023-06-18] MEDS ORDERED: LIDOCAINE 1%-EPI 1:100000 20 ML MDV ONE (12:08)
[2023-06-18 12:47] VITALS: BP 135/77; O2SAT 97
--- NOTE | 2023-06-18 14:16 | ANESTHESIA POST OP EVALUATION ---
Anesthesia Post Eval - Post Anesthesia Eval Vitals: Last Vital Signs Temp 36.0 C L 06/18/23 12:35 Pulse 73 06/18/23 12:35 Resp 16 06/18/23 12:35 BP 135/77 H 06/18/23 12:35 Pulse Ox 97 06/18/23 12:35 O2 Flow Rate CV Function Including HR & BP: Stable Pain Control: Satisfactory Nausea & Vomiting: Negative Mental Status: Baseline Respiratory Status: Airway Patent Hydration Status: Satisfactory Anesthesia Complications: None
--- NOTE | 2023-06-19 09:31 | Mammography Report ---
STEREOTACTIC GUIDED WIRE LOCALIZATION LEFT BREAST- POST-PROCEDURE IMAGING FOR MARKER PLACEMENT: 2022 CLINICAL: Left wire localization with mammography. Correlation is made to exams dated: 06/18/2023 specimen, 04/24/2023 stereotactic biopsy, 04/10/2023 mamm ogram, and 02/28/2023 mammogram - [facility]. A wire localization using stereotactic guidance was performed for the marker clip located in the left breast at 1 o'clock posterior depth. The skin was prepped in the usual manner. A wire was inserted into the targeted area under stereotactic guidance. IMPRESSION: WIRE LOCALIZATION Wire localization for the marker clip in the left breast at 1 o'clock posterior depth was successful. The clip is 1-2 cm anterior and medial to the calcifications. The tip of the wire is approximately 1 cm from the clip. This exam was interpreted at Station ID: [id number]. Nicolas Varela M.D. crm/:06/18/2023 17:30:37 BI-RADS CATEGORY: () - Unspecified - other recall n/a LATERALITY: (B)
--- NOTE | 2023-06-20 10:43 | Mammography Report ---
SPECIMEN LEFT BREAST: 06/18/2023 CLINICAL: Right breast specimen. Correlation is made to exams dated: 04/24/2023 stereotactic biopsy and 04/10/2023 mammogram - [facility]. A lumpectomy specimen was imaged for the previous biopsy site located in the left breast at 2 o'cloc k posterior depth. IMPRESSION: SPECIMEN The imaged specimen includes the calcification, a biopsy clip, and the distal portion of the localiza tion wire. This exam was interpreted at Station ID: [id number]. Sherita lowery/deb:06/19/2023 09:31:55 BI-RADS CATEGORY: () - Unspecified - other recall n/a LATERALITY: (B)
== END 2023-06-18 07:48 | disposition home or self-care (01) ==
LOC: DI 07:47
PROVIDERS: ATTEND Surgery
PROC: 0HBU0ZX Excision of Left Breast, Open Approach, Diagnostic (ICD-10-PCS; principal; 2023-06-18 10:45)
DX: D05.02 Lobular carcinoma in situ of left breast (principal); C77.3 Secondary and unspecified malignant neoplasm of axilla and upper limb lymph nodes; I10 Essential (primary) hypertension

== ENCOUNTER 2023-07-03 13:47 | Outpatient (CLI) | payer MEDICARE, BC ==
--- NOTE | 2023-07-03 16:01 | Ultrasound Report ---
PROCEDURE: Head or Neck Soft Tissue INDICATIONS: MULTINODULAR GOITER TECHNIQUE: Real-time scanning was performed of the thyroid gland, with image documentation. COMPARISON: Thyroid ultrasound 08/08/2021 FINDINGS: Right: Thyroid lobe measures 4.7 x 2.4 x 1.6 cm, and is homogeneous in echotexture. Left: Thyroid lobe measures 4.2 x 2.5 x 1.7 cm, and is homogenous in echotexture. Isthmus: 4 mm thick. Nodule number: One Location: Right inferior Size: 0.3 x 0.3 x 0.3 cm. On prior exam. It is not visualized on current exam Nodule number: Two Location: Right mid Size: 1.0 x 1.3 x 0.8 cm compared to 0.8 x 0.8 x 0.8 cm. Composition: Solid. Echogenicity: Hypoechoic. Shape: wider than tall. Margins: Smooth (0 points). Echogenic foci: None (0 points). Total points: 4 ACR TI-RADS category: 4. Nodule number: Three Location: Right superior medial Size: 0.8 x 0.7 x 0.6 cm compared to 0.4 x 0.3 x 0.4 cm. Composition: Solid. Echogenicity: Hypoechoic. Shape: wider than tall. Margins: Ill-defined. Echogenic foci: None (0 points). Total points: 4 ACR TI-RADS category: 4. Nodule number: Four Location: Left superior mid Size: 1.4 x 0.9 x 1.1 cm compared to 0.6 x 0.5 x 0.7 cm. Composition: Solid. Echogenicity: Hypoechoic. Shape: wider than tall. Margins: Smooth (0 points). Echogenic foci: None (0 points). Total points: 4 ACR TI-RADS category: 4. Nodule number: 5 Location: Left superior mid Size: 1.0 x 0.8 x 0.8 cm compared to 1.1 x 0.7 x 1.1 cm. Composition: Solid. Echogenicity: Hypoechoic. Shape: wider than tall. Margins: Smooth (0 points). Echogenic foci: None (0 points). Total points: 4 ACR TI-RADS category: 4. Nodule number: 6 Location: Left inferior Size: 0.7 x 0.6 x 0.9 cm compared to 1.0 x 0.8 x 0.8 cm. Composition: Solid. Echogenicity: Hypoechoic. Shape: wider than tall. Margins: Smooth (0 points). Echogenic foci: None (0 points). Total points: 4 ACR TI-RADS category: 4. IMPRESSION: Lesion 1 previously identified is not seen on current exam. Lesions 2, 3, 5 and 6 are considered category 4 and relatively stable compared to prior exam. Recomme nd continued interval follow-up as below. Interval increase in size of lesion 4. Secondary to interval growth, FNA is recommended. ACR TI-RADS definitions and recommendations: TI-RADS 1 (benign): 0 points. FNA not needed. TI-RADS 2 (not suspicious): 2 points. FNA not needed. TI-RADS 3 (mildly suspicious): 3 points. "FNA if 2.5 cm or larger, follow up if 1.5 cm or larger (at 1, 3, and 5 years). TI-RADS 4 (moderately suspicious): 4-6 points. "FNA if 1.5 cm or larger, follow up if 1 cm or larger (at 1, 2, 3, and 5 years). TI-RADS 5 (highly suspicious): 7 points or more. "FNA if 1 cm or larger, follow up if 0.5 cm or larger (every year for 5 years). Reviewed by: Naheed Ha MD on 07/03/2023 3:59 PM PDT Approved by: Naheed Ha MD on 07/03/2023 3:59 PM PDT Station ID: [id number]
== END 2023-07-03 13:48 | disposition home or self-care (01) ==
LOC: DI 13:47
PROVIDERS: ATTEND Internal Medicine Endocrinology, Diabetes & Metabolism
DX: E04.2 Nontoxic multinodular goiter (principal)

== ENCOUNTER 2023-07-18 08:51 | Day surgery (SDC) | payer MEDICARE, BC ==
[2023-07-18] MEDS ORDERED: LACTATED RINGERS 1,000 ML IV ONE ×2 (08:57→11:50)
[2023-07-18] MEDS ORDERED: LIDOCAINE-PF 2% 10 ML AMP SUBQ ONE (10:26)
[2023-07-18] MEDS ORDERED: PROPOFOL 200 MG/20 ML VIAL IVP ONE (10:26)
[2023-07-18] MEDS ORDERED: DEXAMETHASONE 4 MG/ML VIAL ONE (10:26)
[2023-07-18] MEDS ORDERED: ONDANSETRON 4 MG/2 ML VIAL ONE (10:26)
[2023-07-18] MEDS ORDERED: MIDAZOLAM 2 MG/2 ML VIAL ONE (10:27)
[2023-07-18] MEDS ORDERED: fentaNYL 100 MCG/2 ML VIAL ONE (10:27)
[2023-07-18] MEDS ORDERED: BUPIVACAINE 0.5% PF 10 ML VIAL ONE (10:32)
[2023-07-18] MEDS ORDERED: LIDOCAINE 1%-EPI 1:100000 20 ML MDV ONE (10:32)
[2023-07-18] MEDS ORDERED: ceFAZolin 1 GM VIAL ONE (11:03)
[2023-07-18] MEDS ORDERED: ePHEDrine 50 MG/ML VIAL IVP ONE (11:07)
[2023-07-18] MEDS ORDERED: BUPIVACAINE 0.5% PF 30 ML VIAL INFIL ONE (11:12)
[2023-07-18] MEDS ORDERED: BUPIVACAINE 0.5% PF 30 ML VIAL SUBQ ONE (11:12)
[2023-07-18] MEDS ORDERED: LIDOCAINE 1%-EPI 1:100000 20 ML MDV SUBQ ONE ×2 (11:12)
[2023-07-18] MEDS ORDERED: oxyCODONE 5 MG TABLET PO PRN (11:46)
[2023-07-18] MEDS ORDERED: ONDANSETRON 4 MG/2 ML VIAL IVP PRN ×2 (11:46→11:51)
[2023-07-18] MEDS ORDERED: HYDROmorphone 0.5 MG/0.5 ML SYRINGE IVP PRN ×2 (11:46→11:51)
[2023-07-18] MEDS ORDERED: ACETAMINOPHEN 500 MG TABLET PO PRN (11:46)
--- NOTE | 2023-07-18 11:50 | OPERATIVE REPORT ---
Operative Report - General Procedure Date: 07/18/23 Planned Procedure: PAC placement Pre-Op Diagnosis: invasive lobular carcinoma Procedure Performed: right internal jugular portacatheter placement with ultrasound and fluoroscopy guidance Post Op Diagnosis: invasive lobular carcinoma - Procedure Note Primary Surgeon: Dr. Nenita García Anesthesia Provider: Trang Fink CRNA Anesthesia Technique: General LMA, Local Estimated Blood Loss (mL): 5 Indications: The patient has invasive lobular carcinoma. Her oncology team is recommending chemotherapy. She was seen and evaluated prior to her procedure. We discussed the risks, benefits, and alternatives of portacatheter placement including but not limited to bleeding, infection, damage to surrounding structures, pneumothorax, dysfunction of the catheter requiring removal or replacement, and the need for further surgeries or procedures. The patient voiced understanding, her questions were answered, and she wished to proceed. A consent was signed by the patient prior to surgery. Findings: 1. Patent right internal jugular vein 2. Catheter flushed and mari easily, loaded with 2 mL 1000 units/mL heparin Complications: None - Other Other Information/Narrative: The patient was taken to the operative suite and placed in the supine position preoperative ERAS medications given. Preoperative antibiotics given. MAC an esthesia was induced to the appropriate level of consciousness. An ultrasound was used to verify the right internal jugular vein was widely patent. The patient was then prepped and draped in the usual, sterile fashion. Next, a sterile ultrasound probe was used to visualize the right internal jugular vein local anesthetic was injected into the skin and subcutaneous tissues overlying this vessel and an 11 blade scalpel was used to make a small skin alanna. Next, under direct ultrasound guidance, a Cook needle was used to gain access to the right internal jugular vein. This was successful on the first attempt. There was excellent return of dark red nonpulsatile blood. A guidewire was passed through the Cook needle without resistance. Fluoroscopy was used to verify the position of the wire. Ultrasound was also used to verify the position of the wire. Next, attention was turned to the chest. The location was chosen on the right anterior chest wall for the portacatheter to sit. The skin and subcutaneous tissues in this area were anesthetized with local as was the path which the catheter would follow up to the neck incision. A 15 blade scalpel was used to make a 2 cm incision in the which was carried down through the skin and subcutaneous tissues to the level of the clavipectoral fascia. A pocket was made with blunt dissection to accommodate the port. Port easily fit within the pocket. 2 interrupted sutures of 3-0 PDS were placed through the port to tack it to the clavipectoral fascia. These were tied into place and then the port was tunneled from the inferior chest wall incision to the superior neck incision. Next, the catheter was cut to the appropriate length, 19cm, under direct fluoroscopic guidance. A dilator and sheath were passed over the guidewire under direct fluoroscopic guidance and the dilator and guidewire were removed leaving only the breakaway sheath in place. The catheter was passed through the sheath and the sheath was broken away. The catheter was the only thing that remained within the vessel. Fluoroscopy confirmed that the catheter tip was in good position and that there were no kinks at the neck. The catheter flushed and mari easily. Next, 3-0 Vicryl was used in an interrupted fashion to reapproximate the deep dermal tissues at the chest incision. Then, 4-0 Monocryl was used in an interrupted subcuticular fashion to reapproximate the skin at the neck incision and in a running subcuticular fashion to reapproximate the skin at the chest incision. A sterile dressing of skin glue was placed. The port was flushed with 2 mL 1000 units/mL heparinized saline. The patient tolerated the procedure well and there were no complications. A postoperative chest x-ray is pending at this time.
[2023-07-18] MEDS ORDERED: ATROPINE ABBOJECT 1 MG/10 ML SYRINGE IVP PRN (11:51)
[2023-07-18] MEDS ORDERED: ePHEDrine 50 MG/ML VIAL IVP PRN (11:51)
[2023-07-18] MEDS ORDERED: NALOXONE 0.4 MG/ML VIAL IVP PRN (11:51)
[2023-07-18] MEDS ORDERED: fentaNYL 100 MCG/2 ML VIAL IVP PRN (11:51)
[2023-07-18] MEDS ORDERED: MORPHINE 2 MG/ML CARPUJECT IVP PRN (11:51)
[2023-07-18] MEDS ORDERED: LACTATED RINGERS 1,000 ML IV SCH (12:00)
[2023-07-18 12:26] VITALS: BP 142/89; O2SAT 98
--- NOTE | 2023-07-18 12:58 | XRAY Report ---
PROCEDURE: Chest for Line Placement INDICATIONS: PAC placement TECHNIQUE: One view of the chest was acquired. COMPARISON: None. FINDINGS: Surgical changes and devices: Right-sided Port-A-Cath with tip in the superior vena cava.. Lungs and pleura: Blunting of the left costophrenic angle, may represent small effusion, atelectasis or consolidation. Mediastinum: Mediastinal contours appear normal. Heart size is normal. Bones and chest wall: No suspicious bony lesions. Overlying soft tissues appear unremarkable. IMPRESSION: Right-sided Port-A-Cath with tip in the superior vena cava. Blunting of left costophrenic angle, may represent small effusion, atelectasis or consolidation. Reviewed by: Nicolas Varela MD on 07/18/2023 12:57 PM PDT Approved by: Nicolas Varela MD on 07/18/2023 12:57 PM PDT Station ID: [id number]
--- NOTE | 2023-07-18 14:19 | ANESTHESIA POST OP EVALUATION ---
Anesthesia Post Eval - Post Anesthesia Eval Vitals: Last Vital Signs Temp 26.0 C L 07/18/23 12:20 Pulse 88 07/18/23 12:20 Resp 16 07/18/23 12:20 BP 142/89 H 07/18/23 12:20 Pulse Ox 98 07/18/23 12:20 O2 Flow Rate 0 07/18/23 09:12 CV Function Including HR & BP: Stable Pain Control: Satisfactory Nausea & Vomiting: Negative Mental Status: Baseline Respiratory Status: Airway Patent Hydration Status: Satisfactory Anesthesia Complications: None
--- NOTE | 2023-07-18 14:19 | ANESTHESIA ---
Pre-Anesthesia VS, & Labs - Diagnosis L breast CA - Procedure port placement Vital Signs: Temp Pulse Resp BP Pulse Ox O2 Flow Rate 26.0 C L 88 16 142/89 H 98 0 07/18/23 12:20 07/18/23 12:20 07/18/23 12:20 07/18/23 12:20 07/18/23 12:20 07/18/23 09:12 Height: 5 ft 1 in Weight (kg): 67.9 kg Body Mass Index: 28.3 BMI Classification: Overweight - NPO >8 hours - Is Patient ?: No, Not Applicable Home Medications and Allergies Active Medications Acetaminophen (Acetaminophen 500 Mg Tablet) 500 mg PO Q4HR PRN PRN Reason: Pain or Fever > 38C (100.4F) Atropine Sulfate (Atropine Abboject 1 Mg/10 Ml Syringe) 0.5 mg IVP Q5M PRN PRN Reason: Bradycardia Stop: 07/19/23 11:51 Ephedrine Sulfate (Ephedrine 50 Mg/Ml Vial) 10 mg IVP Q5M PRN PRN Reason: HYPOTENSION Stop: 07/19/23 11:51 Fentanyl (Fentanyl 100 Mcg/2 Ml Vial) 25 - 50 mcg IVP Q5M PRN PRN Reason: BREAKTHROUGH PAIN (2nd Choice) Stop: 07/19/23 11:51 Hydromorphone HCl (Hydromorphone 0.5 Mg/0.5 Ml Syringe) 0.5 mg IVP Q30M PRN PRN Reason: PAIN >8 Hydromorphone HCl (Hydromorphone 0.5 Mg/0.5 Ml Syringe) 0.2 - 0.6 mg IVP Q5M PRN PRN Reason: PAIN (First Choice) Stop: 07/19/23 11:51 Lactated Ringer's (Lr) 1,000 mls @ 100 mls/hr IV .Q10H DEIDRA Stop: 07/18/23 21:59 Morphine Sulfate (Morphine 2 Mg/Ml Carpuject) 2 - 4 mg IVP Q5M PRN PRN Reason: PAIN (3rd Choice) Stop: 07/19/23 11:51 Naloxone HCl (Naloxone 0.4 Mg/Ml Vial) 0.1 mg IVP Q2M PRN PRN Reason: RESP RATE <8 Stop: 07/19/23 11:51 Ondansetron HCl (Ondansetron 4 Mg/2 Ml Vial) 4 mg IVP Q6HR PRN PRN Reason: Nausea / Vomiting Ondansetron HCl (Ondansetron 4 Mg/2 Ml Vial) 4 mg IVP ONCE PRN PRN Reason: N/V (First Choice) Stop: 07/19/23 11:51 Oxycodone HCl (Oxycodone 5 Mg Tablet) 5 mg PO Q4HR PRN PRN Reason: PAIN 5-7 Alendronate [Fosamax] 70 mg PO UD 05/28/23 Latanoprost 0.005% Ophth Drops [Xalatan Ophth Drops] 1 drops OPTH QPM 05/28/23 Losartan [Cozaar] 50 mg PO BID 05/28/23 Metoprolol Succinate [Toprol Xl] 25 mg PO DAILY 05/28/23 amLODIPine [Norvasc] 5 mg PO DAILY 05/28/23 Lactobacillus Combination No.4 [Probiotic] 1 each PO DAILY 06/11/23 Multivitamin 1 each PO DAILY 06/11/23 Allergies/Adverse Reactions: Allergies Allergy/AdvReac Type Severity Reaction Status Date / Time No Known Drug Allergies Allergy Verified 05/28/23 11:29 Anes History & Medical History - Anesthetic History Anesthesia Complications: reports: No previous complications Family history of Anesthesia Complications: Denies Family history of Malignant Hyperthermia: Denies - Medical History Cardiovascular: reports: Hypertension Pulmonary: reports: None Gastrointestinal: reports: None Urinary: reports: None Neuro: reports: None Musculoskeletal: reports: Osteoarthritis Endocrine/Autoimmune: reports: HyPERthyroidism Skin: reports: None Smoking Status: Never smoker Psychosocial: reports: No issues indicated History of Cancer?: Yes - Surgical History General: reports: Colonoscopy Gynecologic: reports: Other Exam General: Alert, Oriented x3, Cooperative Dental: WNL Mouth Openin Fingerbreadth Neck Mobility: Normal Mallampati classification: II Thyromental Distance: 4-6 cm Respiratory: Lungs clear Cardiovascular: Regular rate Plan Anesthesia Type: General Consent for Procedure(s) Verified and Reviewed: Yes Code Status: Attempt Resuscitation ASA classification: 3-Severe systemic disease Is this case an emergency?: No
== END 2023-07-18 08:52 | disposition home or self-care (01) ==
LOC: SDS 08:51
PROVIDERS: ATTEND Surgery
DX: D05.02 Lobular carcinoma in situ of left breast (principal); I10 Essential (primary) hypertension
CPT/HCPCS: 36561; C1788; J7120

== ENCOUNTER 2023-08-21 09:18 | Outpatient (CLI) | payer MEDICARE, BC ==
[2023-08-21 10:21] LABS: THYROID STIMULATING HORMONE 2.49 uIU/mL (0.34-5.60)
== END 2023-08-21 09:19 | disposition home or self-care (01) ==
LOC: LAB 09:18
PROVIDERS: ATTEND Internal Medicine Endocrinology, Diabetes & Metabolism
DX: E05.00 Thyrotoxicosis with diffuse goiter without thyrotoxic crisis or storm (principal)
CPT/HCPCS: 36415; 84439; 84443; 84480

== ENCOUNTER 2023-11-30 11:35 | Outpatient (CLI) | payer MEDICARE, BC ==
--- NOTE | 2023-11-30 16:59 | Ultrasound Report ---
PROCEDURE: Soft Tissue Head or Neck INDICATIONS: GOITER TECHNIQUE: Real-time scanning was performed of the thyroid gland, with image documentation. COMPARISON: 07/25/2022, 07/03/2023 FINDINGS: Right: Thyroid lobe measures 4.7 x 2.2 x 2.1 cm, and is heterogeneous in echotexture. Left: Thyroid lobe measures 4.5 x 2.3 x 1.8 cm, and is heterogeneous in echotexture. Isthmus: 0.4 cm thick. Nodule number: One Location: Not seen. Nodule number: Two Location: Right midpole Size: 1.1 x 0.8 x 0.7 cm. Previously 1.1 x 1.3 x 0.8 cm. Composition: Solid. Echogenicity: Isoechoic. Shape: wider than tall (0 points). Margins: Smooth (0 points). Echogenic foci: None (0 points). Total points: 3 ACR TI-RADS category: Mildly suspicious Nodule number: Three Location: Right superior Size: 0.6 x 0.6 x 0.9 cm, previously 0.8 x 0.7 x 0.6 cm. Composition: Cystic part solid. Echogenicity: Isoechoic. Shape: wider than tall (0 points). Margins: Ill-defined. Echogenic foci: None (0 points). Total points: 2 ACR TI-RADS category: Not suspicious Nodule number: Four Location: Left superior lateral Size: 1.3 x 0.9 x 1.1 cm, previously 1.4 x 0.9 x 1.1 cm . Composition: Spongiform. Echogenicity: Isoechoic. Shape: wider than tall (0 points). Margins: Indistinct. Echogenic foci: None (0 points). Total points: 2 ACR TI-RADS category: Not suspicious Nodule #5: Location: Left superior mid pole Size: 0.9 x 0.8 x 0.8 cm, previously 1.0 x 0.8 x 0.8 cm Composition: Solid Echogenicity: Hypoechoic Margins: Indistinct Shape: Wider than tall Echogenic foci: None Total points: 4 ACR TI RADS category: Moderately suspicious, but too small for dedicated follow-up. Nodule #6: Location: Left inferior pole Size: 0.5 x 0.5 x 0.5 cm, previously 0.9 x 0.6 x 0.9 Composition: Solid: Echogenicity: Hypoechoic Margins: Smooth Shape: Wider than tall Echogenic foci: None Total points: 4 ACR TI RADS category: Moderately suspicious, but too small for dedicated follow-up. IMPRESSION: 1. No suspicious nodules to warrant follow-up and no nodules large enough to warrant FNA. 2. Several of these nodules are indistinct with questionable definition and may relate to diffuse het erogeneity of the gland. ACR TI-RADS definitions and recommendations: TI-RADS 1 (benign): 0 points. FNA not needed. TI-RADS 2 (not suspicious): 2 points. FNA not needed. TI-RADS 3 (mildly suspicious): 3 points. "FNA if 2.5 cm or larger, follow up if 1.5 cm or larger (at 1, 3, and 5 years). TI-RADS 4 (moderately suspicious): 4-6 points. "FNA if 1.5 cm or larger, follow up if 1 cm or larger (at 1, 2, 3, and 5 years). TI-RADS 5 (highly suspicious): 7 points or more. "FNA if 1 cm or larger, follow up if 0.5 cm or larger (every year for 5 years). Reviewed by: Sherita Harrison MD on 11/30/2023 4:58 PM PST Approved by: Sherita Harrison MD on 11/30/2023 4:58 PM PST Station ID: [id number]
== END 2023-11-30 11:36 | disposition home or self-care (01) ==
LOC: DI 11:35
PROVIDERS: ATTEND Internal Medicine Endocrinology, Diabetes & Metabolism
DX: E04.2 Nontoxic multinodular goiter (principal)

== ENCOUNTER 2024-06-05 10:29 | Outpatient (CLI) | payer MEDICARE, BC ==
--- NOTE | 2024-06-06 09:39 | Mammography Report ---
BILATERAL DIGITAL DIAGNOSTIC MAMMOGRAM 3D/2D WITH EXAGGERATED CC SPOT COMPRESSION: 06/05/2024 CLINICAL: Post left lumpectomy. Due for bilateral exam. Comparison is made to exams dated: 06/18/2023 localization, 06/18/2023 specimen, 04/24/2023 stereotacti c biopsy, 04/10/2023 mammogram, 02/28/2023 mammogram, and 11/30/2020 mammogram - [facility]. Both breasts are heterogeneously dense, which may obscure small masses (category c / 51-75% glandular tissue). There are new surgical clips in the left breast in the upper outer quadrant that correlate with surgi ceiclia site. There also are residual benign calcifications and a biopsy marker in the right breast at 9 o'clock that are not significantly changed, and correlates with remote benign biopsy site. No significant masses, calcifications, or other findings are seen in either breast. Mammograms are o therwise stable. IMPRESSION: BENIGN Expected post surgical and treatment changes left breast. Right mammogram is stable. There is no mammographic evidence of malignancy. Return to annual mammogram screening schedule is rec ommended. Findings and recommendations were conveyed to the patient at time of exam. This exam was interpreted at Station ID: [id number]. NOTE: For mammograms, a report in lay terms will be sent to the patient. Approximately 15% of breast malignancies will not be visualized mammographically. In the management of a palpable breast mass, a negative mammogram must not discourage biopsy of a clinically suspicious lesion. Electronically Signed By: Sherita lowery/:06/05/2024 11:43:06 letter sent: No_Letter ACR BI-RADS Category 2: Benign Finding(s) 3342F PARENCHYMAL PATTERN: (D) - The breast(s) demonstrate(s) heterogeneously dense fibroglandular parfrancky ma. BI-RADS CATEGORY: (2) - 2 Mammogram [id number] return to screening LATERALITY: (B)
== END 2024-06-05 10:30 | disposition home or self-care (01) ==
LOC: DI 10:29
PROVIDERS: ATTEND Surgery
DX: C50.612 Malignant neoplasm of axillary tail of left female breast (principal); R92.333 Mammographic heterogeneous density, bilateral breasts

== ENCOUNTER 2024-06-16 10:27 | Outpatient (CLI) | payer MEDICARE, BC ==
[2024-06-16 11:13] LABS: THYROID STIMULATING HORMONE 2.26 uIU/mL (0.34-5.60)
--- NOTE | 2024-06-16 11:23 | ONCOLOGY/HEMATOLOGY VISIT ---
HEME/ONC PROGRESS NOTE: cc: Carole Baxter MD. Nenita García MD. ONCOLOGY HISTORY: 1. Left breast Invasive lobular carcinoma With LCIS, Grade 7/9. Intermediate. ER 40% PR0% HER2 FISH+ a. surgical on 06/18/23. pT1b [8mm]; Node1/1+ [non SLN], 1cm and KATHY+; HER2 2+, FISH +. b. Adj radiation Rx till 03/10/24. no axillar node surgery per her surgeon. c. TCHP adjuvant therapies, C1D1 on 07/30/23 --> C6D1, 11/12/23 d. Maintenance HP 12/10/2023, q3w x 11. till 07/2024 e. Letrozole 03/2024; Zometa 04/2024 2. Osteoporosis while on alendronate. a. DEXA scan in 06/2022. Lumbar spine T score -2.9. in 03/2024, T-2.9 b. vit-D3 4000IU, Raghavendra c. Zometa 04/14/24 3. Hyponatremia, 119, 08/06/23 4. hx of Grade 4 neutropenia, ANC 0.1 on C1Day 8 Interval history; Karissa Returns for follow-up. Since last seen, she continued on maintenance HP maintenance program. She has also started letrozole after completion of radiation therapy. So far tolerating well. Does have some mild nausea. no diarrhea. Feeling some better. Physically normal active. Going to travel to [place] in 3 weeks for vacation. ASSESSMENT AND PLAN: 1. Left breast Invasive lobular. stage II, HER2 FISH+ * s/p adjuvant TCHP for 6 cycles. Currently on maintenance HP for a total of one year of anti-Her2 therapy, or 11 cycles. 1 more dose to go in 2-1/2 weeks which is earlier than scheduled due to her traveling to [place] in 07/2024. * Continue on letrozole for a 5-10 year course. * Zometa 4mg q6m for 5 years. * latest mammography 06/05/24 negative. She will repeat in 6 months and then move onto once a year. - She will contact Dr. García for port removal after completion of chemotherapy. Follow-up plan. in 3 months. cbc once a year. 2. Osteoporosis. baseline DEXA scan 03/24/24, T-2.9. -Zometa infusion To replace alendronate oral. 3. Hyponatremia, hypomagnesimia. -Chronic. -She will picker/puller calcium/magnesium tablet OTC, qd. HISTORY OF CURRENT ILLNESS/REVIEW OF SYSTEMS: The patient was initially seen for consultation on 05/06/23 for a newly diagnosed lobular carcinoma in situ of the left breast that was identified on routine screening mammography noted calcifications at the left breast UOQ. She subsequently underwent MRI of the breasts, and core biopsy performed on 04/24/23. Final pathology reviewed lobular carcinoma in situ, pleomorphic variant. Histology grade high, solid pattern, estrogen receptor positive at 80%. She then underwent a lumpectomy on 06/18/23. That surprisingly reviewed invasive lobular carcinoma. ER40% GA 0%. HER 2 2+ and FISH+; At the lower axilla a palpable lymph nodes was excised. That surprisingly reviewed invasive lobular carcinoma with extranodal extension. The lymph node was 1 cm in size. She started adjuvant chemotherapy with TCHP based program, cycle 1 day 1 on 07/30/23. but she had further consultation with Dr. García after MRI restaging. no abnormal signals seen so that decision was not to pursue further axilla zackary examination. she continued on maintenance HP infusion from 12/10/23 q3w. LVEF of 57% on 07/19/23. Review of Systems: All other systems negative. ECO Past Medical/Surgical/Family/Social History: Former smoker quit in 1975. Consumes alcohol including beer or liquor 1015 drinks per week. Hypertension.Osteoporosis. Graves' thyroid disease. Tubal ligation. No family history of breast cancer. Father had colon cancer. PHYSICAL EXAM: HEENT; no jaundice;Erythema in the oral mucosa without ulceration. Lung; Heart; RRR Extremity; no clubbing, no peripheral edema, no cyanosis, Skin. No new rash. No petechia or purpura. Lymph nodes: no palpable adenopathy in the cervical, supraclavicular fossa, or axilla areas. Today's visit involves high complexity decision making for the high risk/life threatening diagnosis of High risk of breast cancer and other comorbidities, requiring anti-cancer/chemotherapy with significant toxicities, that require intensive monitoring, and management of cancer-related symptoms and side effects from anti-cancer treatments as listed in assessment and plan. Medical Decision Making: Number and Complexity of Problems Addressed: High - Acute or chronic illness that poses a threat to life or bodily function, cancer, need for chemotherapy, severe side effects from chemotherapy. Amount and/or complexity of data reviewed and analyzed: Review of external notes, laboratory/radiology results, and test ordering. Assessment requiring independent historian. Discussion of management or test interpretation with external physician Independent interpretation of test performed by another qualified health complex care nurse practitioner Risk of Complications and/or Morbidity or Mortality of Patient Management: High - o Decision regarding initiation anti-cancer therapy, o drug therapy requiring intensive monitoring for toxicity o Overall: High Clinical Data: Allergies No Known Drug Allergies Allergy (Verified 09/10/23 09:49) Home Medications Alendronate [Fosamax] 70 mg PO UD 05/28/23 [History Last Taken 07/14/23] Latanoprost 0.005% Ophth Drops [Xalatan Ophth Drops] 1 drops OPTH QPM 05/28/23 [History Last Taken 07/17/23] Losartan [Cozaar] 50 mg PO BID 05/28/23 [History Last Taken 07/17/23] Metoprolol Succinate [Toprol Xl] 25 mg PO DAILY 05/28/23 [History Last Taken 07/17/23] amLODIPine [Norvasc] 5 mg PO DAILY 05/28/23 [History Last Taken 07/17/23] Lactobacillus Combination No.4 [Probiotic] 1 each PO DAILY 06/11/23 [History Last Taken 07/17/23] Multivitamin 1 each PO DAILY 06/11/23 [History Last Taken 07/17/23] OLANZapine [Olanzapine] 5 mg PO HS 07/19/23 [History Last Taken Unknown] ONDANSETRON ODT Prepack 2 [ZOFRAN ODT Prepack 2] 8 mg PO Q8HR PRN 07/19/23 [History Last Taken Unknown] Prochlorperazine Maleate [Compazine] 10 mg PO Q4HR PRN 07/19/23 [History Last Taken Unknown] dexAMETHasone [Decadron] 4 mg PO ONCE 07/19/23 [History Last Taken Unknown] Letrozole 2.5 mg PO DAILY 02/11/24 [History Last Taken Unknown] Recent Lab Results 06/16/24 10:10: TSH 2.26, Free T4 Direct 0.77
== END 2024-06-16 10:28 | disposition home or self-care (01) ==
LOC: LAB.R 10:27
PROVIDERS: ATTEND Internal Medicine Endocrinology, Diabetes & Metabolism
DX: E05.00 Thyrotoxicosis with diffuse goiter without thyrotoxic crisis or storm (principal); E87.1 Hypo-osmolality and hyponatremia; E04.2 Nontoxic multinodular goiter; M81.0 Age-related osteoporosis without current pathological fracture
CPT/HCPCS: 84439; 84443

== ENCOUNTER 2024-07-04 08:00 | Outpatient (CLI) | payer MEDICARE, BC ==
[2024-07-04 09:38] LABS: THYROID STIMULATING HORMONE 2.12 uIU/mL (0.34-5.60)
== END 2024-07-04 23:59 | disposition home or self-care (01) ==
LOC: LAB.R 08:00
PROVIDERS: ATTEND Internal Medicine Endocrinology, Diabetes & Metabolism
DX: M81.0 Age-related osteoporosis without current pathological fracture (principal); E05.00 Thyrotoxicosis with diffuse goiter without thyrotoxic crisis or storm; E04.2 Nontoxic multinodular goiter; E87.1 Hypo-osmolality and hyponatremia
CPT/HCPCS: 82306; 84439; 84443